=== PATIENT | female | born 1945 | race Caucasian/White ===

== ENCOUNTER → 2017-06-01 | Outpatient (CLI) | payer MEDICARE ==
--- NOTE | 2017-06-01 09:47 | NM ---
EXAMINATION TYPE: NM gastric emptying study DATE OF EXAM: 06/01/2017 COMPARISON: NONE HISTORY: Dysphasia Following administration of 2.0 mCi Tc 99m Sulfur Colloid with 1 cup of oatmeal projection images of the abdomen were obtained 5 minutes post ingestion. When possible, both anterior and posterior projec tion images were obtained to allow the calculation of the geometric mean activity. Clearance: 25 % Half-life: 36 min Gastroesophagel reflux: None IMPRESSION: Gastric emptying: Clearance of 25% and half-life of 36 minutes Gastroesophageal reflux: None Gastric emptying normal percentage values: 30 minutes: <70% of retention (> 30% emptying) suggests abnormally fast emptying. 60 minutes: <90% retention (>10% emptying) is normal; less than 30% retention (>70% emptying) suggest s abnormally rapid empying. 90 minutes: <65% retention (> 35% emptying) is normal. 120 minutes: <60% retention (> 40% emptying) is normal. 180 minutes: <30% retention (> 70% emptying) is normal. Gastric emptying T-1/2: Solid: The normal range is 60-105 minutes Liquid only: Normal range is 10-45 minutes. Liquid only-children: At 60 minutes, normal range is 44-58 % . Liquid only-infants: At 60 minutes, normal range is 32-64 %. Additional references: Gastric Emptying Scintigraphy [email or web address]
== END | disposition home or self-care (01) ==
LOC: RADNMMAIN 06:33
PROVIDERS: ATTEND Internal Medicine
DX: E11.9 Type 2 diabetes mellitus without complications (principal)
CPT/HCPCS: 78264; A9541

== ENCOUNTER → 2017-10-18 | Outpatient (CLI) | payer MEDICARE ==
--- NOTE | 2017-10-18 19:04 | MR ---
EXAMINATION TYPE: MR lumbar spine wo con DATE OF EXAM: 10/18/2017 COMPARISON: 03/10/2016 HISTORY: Low back pain with difficulty doing things TECHNIQUE: T1 and T2 axial and sagittal images of the lumbar spine are submitted. FINDINGS: There is no abnormal signal seen within the visualized spinal cord or paraspinal soft tissu es. At L1-2 there is moderate degenerative disc disease and circumferential disc bulging with facet arthr opathy. Mild bilateral foraminal encroachment. At L2-3 there is severe degenerative disc disease with broad-based central disc bulging and posterior spondylosis. There is moderate bilateral foraminal encroachment. There is mild central stenosis. At L3-4 there is severe degenerative disc disease with marked facet arthropathy. Moderate bilateral f oraminal encroachment. Borderline to mild central stenosis. At L4-5 there is grade 1 anterolisthesis with diffuse disc bulging. Moderate to severe canal stenosis and moderate to severe bilateral foraminal encroachment. At L5-S1 there is facet arthropathy with findings greater on the right. Neural foramina remain patent . No Canal stenosis or focal herniation. IMPRESSION: 1. Overall stable findings, persistent grade 1 anterolisthesis L4 on L5, this spondylolisthesis cause s advanced bilateral neural foraminal narrowing and suspected effacement of both L4 nerves. In additi on multilevel degenerative change most prominent L3-L4 level is redemonstrated with effacement of rig ht L3 nerve once again seen. Further details are noted as discussed above.
== END | disposition home or self-care (01) ==
LOC: RADMRIMAIN 16:22
PROVIDERS: ATTEND Physical Medicine & Rehabilitation
DX: M99.73 Connective tissue and disc stenosis of intervertebral foramina of lumbar region (principal); M43.16 Spondylolisthesis, lumbar region; M47.816 Spondylosis without myelopathy or radiculopathy, lumbar region
CPT/HCPCS: 72148

== ENCOUNTER → 2018-05-03 | Outpatient (CLI) | payer MEDICARE ==
--- NOTE | 2018-05-03 17:05 | US ---
EXAMINATION TYPE: US venous doppler duplex LE RT DATE OF EXAM: 05/03/2018 4:37 PM COMPARISON: US CLINICAL HISTORY: R22.41 SWELLING,MASS RT LOWER EXTR.. Prior PE. Post back surgery 3 months ago and c /o rt leg swelling since then. SIDE PERFORMED: Right TECHNIQUE: The lower extremity deep venous system is examined utilizing real time linear array sonog g[place] with graded compression, doppler sonography and color-flow sonography. VESSELS IMAGED: Common Femoral Vein Deep Femoral Vein Greater Saphenous Vein * Femoral Vein Popliteal Vein Small Saphenous Vein * Proximal Calf Veins (* superficial vessels) Right Leg: Negative for DVT IMPRESSION: 1. Right lower extremity ultrasound negative for deep venous thrombosis. 2. Fluid edema collections are evident within the subcutaneous tissues to the soft tissues.
== END | disposition home or self-care (01) ==
LOC: RADUSWWP 15:48
PROVIDERS: ATTEND Internal Medicine
DX: R60.0 Localized edema (principal)

== ENCOUNTER → 2019-03-21 | Outpatient (CLI) | payer MEDICARE ==
[2019-03-21 17:07] LABS: LDL Cholesterol,Calculated 141.4 mg/dL (0.0-131.0); VLDL Calculation 41.6 mg/dL (5.00-40.00)
== END | disposition home or self-care (01) ==
LOC: LABWHC1 11:26
PROVIDERS: ATTEND Internal Medicine Clinical Cardiac Electrophysiology
DX: E03.9 Hypothyroidism, unspecified (principal); E78.5 Hyperlipidemia, unspecified
CPT/HCPCS: 36415; 80061; 84443

== ENCOUNTER → 2019-03-25 | Outpatient (CLI) | payer MEDICARE ==
--- NOTE | 2019-03-25 14:51 | SFUN ---
SLEEP CENTER FOLLOW UP NOTE A 73-year-old female patient was diagnosed having obstructive sleep apnea many years ago and the patient saw me in followup here in the Sleep Center. Treatment has not been very much successful and the patient was having difficulty with increased hypersomnia and sleepiness. The patient was utilizing an older generation [employer] S9 series which was set at a pressure of 14 cm of water utilizing an Air Fit P 10 medium- size nose pillow. She was also complaining of neuropathy and leg pains and cramps and restlessness. She was on Zoloft for depression. She was taken Requip 0.5 mg 3 times a day and since her last evaluation, Lyrica was added 75 mg at bedtime. She underwent a polysomnogram. The patient was diagnosed again having sleep apnea, predominantly obstructive with a central component. The patient's overall apnea-hypopnea index was 35.8, was worse in the supine body position with an AHI of 49.3. She demonstrated severe nocturnal oxygen saturation were pulse ox was dropping as low as 60% and the patient had excessive sleep fragmentation. [id number], the patient did not have any significant periodic limb movements. She has history of depression on Zoloft. She has coronary artery disease with previous bypass surgeon. She has a history of CVA, chronic anxiety and hypertension. Based on all this, she was asked to come in to undergo a CPAP titration. She came in; however, she became anxious and she was unable to sleep and she is opting for an auto Pap or a home titration She has no other new complaints. Her symptoms are essentially unchanged compared to last evaluation. Her current Garland Score is at 17. Her body weight is 189, which is pretty much comparable to her body weight during her last evaluation. No other new complaints since her last evaluation. REVIEW OF SYSTEMS: A 14-point review of system was done. Positive findings are mentioned in history of present illness. Of significance is her stable weight, her increased leg cramps and restlessness which is well controlled with Requip and Lyrica. No suicidal ideations. No anhedonia, no headaches, no altered mentation. No cough or sputum production. No heartburn. No chest pain. No palpitations. No cardiac arrhythmias, no syncope. No sleepwalking or sleep talking. No sleep paralysis. No hallucinations. No cataplexy. No heartburn, nausea, vomiting, diarrhea, dysuria, or nocturia. PHYSICAL EXAMINATION: BP is 150/65, pulse 61, respirations 16, temperature 98.4 and saturation is 95% on room air. Weight is 189. General appearance is calm, comfortable. Head is atraumatic, normocephalic. NECK: Supple. Mallampati class IV. There is no goiter or neck mass. LUNGS: Clear to auscultation. HEART: Sounds regular rate and rhythm. Normal S1, S2. No S3, S4. No murmurs. ABDOMEN: Soft, nontender. No organomegaly. EXTREMITIES: No edema. No cyanosis or clubbing. NEUROLOGIC: The patient is alert and oriented x3. No focal neurological deficits. PSYCHIATRIC: Negative for anxiety. Positive for depression, currently on Zoloft. IMPRESSION: 1. Sleep apnea, severe, predominantly obstructive with a central component. Overall apnea-hypopnea index was 35, worse in the supine body position. The patient was unable to undergo an in-lab CPAP titration. 2. Nocturnal oxygen desaturation secondary to above. 3. Sleep fragmentation secondary to sleep apnea in general. Leg kicks and restlessness have not been a big component based on the screening polysomnogram. 4. History of restless legs syndrome, well treated with a combination of Lyrica and Requip. 5. Diminished sleep efficiency. 6. Depression. 7. Coronary artery disease. Previous bypass surgery. 8. Chronic anxiety. 9. History of cerebrovascular accident. 10.Hypertension. PLAN: Ideally, this patient with inlet titration knowing that she has a central component and cardiac disease and various other comorbidities. [id number], she is unable to complete an in-lab study. She opted for an auto Pap. I think that is reasonable. I am going to give her an auto Pap minimum of 10, maximum of 20 with an an Air Fit P10 nose pillow. The patient will see me back in 30 to 90 days for a followup regarding his compliance and clinical response. Meanwhile, she will continue the Zoloft for depression, Lyrica and Requip for restlessness and leg cramps. She understands that ideally, a titration would have been the best option for her. Alternatively titration and an an auto titration with followup may also improve her symptoms. Will continue to follow. MMODL / IJN: [id number] / [facility]
== END | disposition home or self-care (01) ==
LOC: SLEEP 13:25
PROVIDERS: ATTEND Internal Medicine Critical Care Medicine
DX: G47.33 Obstructive sleep apnea (adult) (pediatric) (principal); G47.31 Primary central sleep apnea; F32.9 Major depressive disorder, single episode, unspecified; I25.10 Atherosclerotic heart disease of native coronary artery without angina pectoris; F41.9 Anxiety disorder, unspecified; I10 Essential (primary) hypertension; Z86.73 Personal history of transient ischemic attack (TIA), and cerebral infarction without residual deficits; Z87.39 Personal history of other diseases of the musculoskeletal system and connective tissue; Z95.1 Presence of aortocoronary bypass graft; Z79.899 Other long term (current) drug therapy

== ENCOUNTER → 2019-08-08 | Outpatient (CLI) | payer MEDICARE ==
--- NOTE | 2019-08-08 15:21 | CT ---
EXAMINATION TYPE: CT brain wo con DATE OF EXAM: 08/08/2019 COMPARISON: MRI brain 05/13/2010 INDICATION: Headache after fall and head injury x1 week ago. DLP: 1131.6 mGycm, Automated exposure control for dose reduction was used. CONTRAST: None CT of the brain is performed utilizing 3 mm thick sections through the posterior fossa and 3 mm thick sections through the remaining calvarium. Study is performed within 24 hours of arrival to the hosp ital. No abnormal hyperdensity is present to suggest an acute intracranial hemorrhage. No mass lesion is evident. No acute infarcts are evident. There is diminished density along the external capsule left basal gang lion. Patchy white matter hypodensity is present. Ventricles and sulci are appropriate for the patient age. Paranasal sinuses and mastoid air cells within the [id number] are clear. Surgical skin vikram are along the upper scalp. IMPRESSIONS: 1. Periventricular white matter hypodensity, likely on the basis of chronic white matter ischemic c hanges. 2. Hypodensity within the external capsule left basal ganglion compatible some ischemic type change o f indeterminate age. This may be chronic. 3. No suspicious acute posttraumatic changes.
== END | disposition home or self-care (01) ==
LOC: RADCTMAIN 11:52
PROVIDERS: ATTEND Internal Medicine
DX: R90.89 Other abnormal findings on diagnostic imaging of central nervous system (principal)
CPT/HCPCS: 70450

== ENCOUNTER → 2019-10-09 | Outpatient (CLI) | payer MEDICARE ==
[2019-10-09 12:35] LABS: Anisocytosis Slight; HCT 37.2 % (34.0-46.0); HGB 11.1 gm/dL (11.4-16.0); Hypochromasia Marked; MCH 24.4 pg (25.0-35.0); MCHC 29.9 g/dL (31.0-37.0); MCV 81.6 fL (80.0-100.0); Platelet Count 164 k/uL (150-450); RBC 4.56 m/uL (3.80-5.40); RDW 17.2 % (11.5-15.5); WBC 5.4 k/uL (3.8-10.6)
[2019-10-09 18:36] LABS: African American GFR (CKD) 84.8 (60.0-200.0); Albumin 4.8 g/dL (3.80-4.90); Albumin/Globulin Ratio 2.18 (1.60-3.17); Anion Gap 10.8 mmol/L (4.00-12.00); BUN/Creat Ratio 23.75 Ratio (12.00-20.00); Calcium 9.3 mg/dL (8.7-10.3); Carbon Dioxide 27.2 mmol/L (21.6-31.8); Chol/HDL Ratio 3.39; Globulin 2.2 g/dL (1.6-3.3); LDL Cholesterol,Calculated 137.2 mg/dL (0.0-131.0); Magnesium 1.8 mg/dL (1.5-2.4); Non-African American GFR(CKD) 73.1 (60.0-200.0); Potassium 4.3 mmol/L (3.5-5.5); Total Bilirubin 0.4 mg/dL (0.3-1.2); VLDL Calculation 29.8 mg/dL (5.00-40.00)
== END | disposition home or self-care (01) ==
LOC: LABWHC1 11:31
PROVIDERS: ATTEND Nurse Practitioner Adult Health
DX: I10 Essential (primary) hypertension (principal); E78.5 Hyperlipidemia, unspecified
CPT/HCPCS: 36415; 80053; 80061; 83735; 85027

== ENCOUNTER → 2020-01-28 | Outpatient (CLI) | payer MEDICARE ==
[2020-01-28 10:34] LABS: Anisocytosis Slight; HCT 41.6 % (34.0-46.0); HGB 13.2 gm/dL (11.4-16.0); Hypochromasia Slight; MCH 28.7 pg (25.0-35.0); MCHC 31.7 g/dL (31.0-37.0); MCV 90.6 fL (80.0-100.0); Platelet Count 151 k/uL (150-450); RBC 4.59 m/uL (3.80-5.40)
[2020-01-28 10:58] LABS: African American GFR (CKD) >90 (>60 ml/min/1.73 sqM); Anion Gap 10 mmol/L; Blood Urea Nitrogen 22 mg/dL (7-17); Carbon Dioxide 27 mmol/L (22-30); Chloride 100 mmol/L (98-107); Non-African American GFR(CKD) 79 (>60 ml/min/1.73 sqM); Potassium 4.6 mmol/L (3.5-5.1); Sodium 137 mmol/L (137-145)
== END | disposition home or self-care (01) ==
LOC: LABPAT 09:54
PROVIDERS: ATTEND Internal Medicine Interventional Cardiology
DX: Z01.818 Encounter for other preprocedural examination (principal); I25.10 Atherosclerotic heart disease of native coronary artery without angina pectoris; U07.1 COVID-19
CPT/HCPCS: 80051; 82565; 84520; 85027; 36415; U0003

== ENCOUNTER 2020-02-20 09:02 | Day surgery (SDC) | payer MEDICARE ==
[2020-02-19 08:40] VITALS: BMI 38.0
[~2020-02-20 09:02] MED LIST: ALPRAZolam 0.25 MG TAB PO PRN; ALPRAZolam 0.5 MG TAB PO PRN; NITROGLYCERIN SL TABS 0.4 MG TAB SUBLINGUAL PRN; SODIUM CHLORIDE 0.9% 1,000 ML in EMPTY BAG 1 BAG IV ONE
[2020-02-20 09:54] LABS: Glucose,Whole Blood 108 mg/dL (75-99)
[2020-02-20 10:12] VITALS: BP 126/95; PULSE 62; RESP 16; TEMP 98.2
== END 2020-02-20 10:43 | disposition home or self-care (01) ==
LOC: CATHCVL 09:02
PROVIDERS: ATTEND Internal Medicine Interventional Cardiology
DX: I25.10 Atherosclerotic heart disease of native coronary artery without angina pectoris (principal); Z53.9 Procedure and treatment not carried out, unspecified reason

== ENCOUNTER 2020-03-12 06:40 | Day surgery (SDC) | payer MEDICARE ==
[2020-03-10 18:15] VITALS: BMI 37.8
[~2020-03-12 06:40] MED LIST changes: +ASPIRIN 325 MG TAB PO STA
[2020-03-12] MEDS ORDERED: ASPIRIN 81 MG PO ONE (07:00)
[2020-03-12 07:20] VITALS: RESP 16; TEMP 98
[2020-03-12 07:20] LABS: Anisocytosis Slight; Basophils % (A) 1 %; Eosinophils # (A) 0.2 k/uL (0-0.7); Eosinophils % (A) 4 %; HCT 42.5 % (34.0-46.0); HGB 13.7 gm/dL (11.4-16.0); Lymphocytes % (A) 16 %; MCH 29.7 pg (25.0-35.0); MCHC 32.3 g/dL (31.0-37.0); MCV 92.1 fL (80.0-100.0); Monocytes # (A) 0.5 k/uL (0-1.0); Monocytes % (A) 8 %; Neutrophils # (A) 4.1 k/uL (1.3-7.7); Neutrophils % (A) 69 %; Platelet Count 136 k/uL (150-450); RBC 4.62 m/uL (3.80-5.40); RDW 16.6 % (11.5-15.5)
[2020-03-12 07:29] LABS: African American GFR (CKD) >90 (>60 ml/min/1.73 sqM); Anion Gap 10 mmol/L; Blood Urea Nitrogen 28 mg/dL (7-17); Calcium 9.3 mg/dL (8.4-10.2); Carbon Dioxide 27 mmol/L (22-30); Chloride 105 mmol/L (98-107); Glucose 108 mg/dL (74-99); Non-African American GFR(CKD) 87 (>60 ml/min/1.73 sqM); Potassium 3.9 mmol/L (3.5-5.1); Sodium 142 mmol/L (137-145)
[2020-03-12] MEDS: MIDAZOLAM 2 MG/2 ML VIAL IVP ONE ×2 (07:39→07:56)
[2020-03-12] MEDS ORDERED: LIDOCAINE 1% INJ 10MG/ML (20 ML MDV) SQ ONE (07:43)
[2020-03-12] MEDS ORDERED: IOPAMIDOL-370 50ML BTL INJ ONE (08:09)
[2020-03-12] MEDS ORDERED: IOPAMIDOL-370 100ML BTL INJ ONE (08:12)
[2020-03-12] MEDS ORDERED: RX INFO: IV CONTRAST WAS GIVEN 1 EACH MISC MISCELLANE PRN (08:19)
[2020-03-12] MEDS ORDERED: SODIUM CHLORIDE 0.9% 1,000 ML IV SCH (08:30)
[2020-03-12 13:18] VITALS: BP 126/62; PULSE 57
--- NOTE | 2020-03-12 13:44 | CC ---
CARDIAC CATHETERIZATION REPORT DATE OF SERVICE: 03/12/2020 PERFORMING PHYSICIAN: Oz Allen MD. PROCEDURE PERFORMED: 1. Selective left and right coronary angiogram. 2. SPENCER to LAD angiogram. 3. SVG to diagonal angiogram. 4. Left heart catheterization. 5. An aortic root angiogram. INDICATION: This is a 74-year-old female patient who sees Dr. Jacinto in the office as an outpatient with a past medical history significant for diabetes, hypertension, dyslipidemia, and coronary artery disease. At [facility] in 2007, she underwent percutaneous artery percutaneous coronary intervention complicated by what seems to be dissection and the patient underwent an emergent open heart surgery and she received 2 bypasses. The details on these bypasses before the procedure today were unknown. Recently, she was experiencing intermittent episodes of chest discomfort and she underwent myocardial perfusion imaging stress test and that revealed reversible defect. Because of that, a heart catheterization was advised. APPROACH: Right common femoral artery. COMPLICATION: None. LEVEL OF SEDATION: Moderate with sedation length of 29 minutes. PROCEDURE DESCRIPTION: After obtaining an informed consent, the patient was brought to the cardiac mechanical shop laborer. The right common femoral artery was cannulated using micropuncture technique, and the micropuncture wire passed easily. Then I placed a 6-Palauan sheath 11 cm at the right groin. Selective left and right coronary angiogram performed using JL4.5 and JR4 catheters. SPENCER to LAD angiogram was performed using the JR4 catheter. SVG to diagonal angiogram was performed using also the JR4 catheter. The left heart catheterization was performed using 6-Palauan pigtail catheter. An aortic root angiogram was performed using also 6-Palauan pigtail catheter. The procedure was completed without any complication. Selective coronary angiogram. 1. The left main appeared to be long with mild disease only distally appeared to be in the range of 10% to 20%. Then the left main bifurcates into a dominant left circumflex and left anterior descending artery. 2. The left circumflex is a large caliber vessel and is a codominant vessel. The proximal circumflex has mild disease only. It gives rise into the first obtuse marginal branch which is a medium caliber vessel, about 2 mm in diameter, has ostial lesion and appeared to be in the range of 70%. The mid left circumflex appeared to be angiographically normal and gives rise into a small 2nd obtuse marginal branch which appeared to be angiographically normal. The circumflex distally became a PDA and that seems to be angiographically normal. 3. The left anterior descending artery. The very proximal LAD from the left main has a lesion that appeared to be in the range of 70% and this is by the bifurcation of the first diagonal branch which is a large caliber vessel with competitive flow in it. After that, the LAD is stented and the stent is patent, but there is also competitive flow in the LAD that comes from the SPENCER. 4. The right coronary artery is a large caliber vessel. It is a codominant vessel with mild disease only. Distally bifurcates into PDA and PLV branches. Both appeared to be angiographically normal. CORONARY BYPASS ANGIOGRAM: 1. The SVG to diagonal appeared to be patent. 2. The SPENCER to LAD appeared to be patent as well. HEMODYNAMICS: The LVEDP was 28 mmHg without significant gradient across aortic valve. AORTIC ROOT ANGIOGRAM: The aortic root angiogram was performed in the TAJIK projection and using a power injection. The aortic root appeared to be dilated right after the takeoff of the coronary arteries. CONCLUSION: 1. Severe disease involving the very proximal left anterior descending artery. The left internal mammary artery to left anterior descending is patent. The saphenous venous graft to diagonal is patent as well. 2. Severe disease involving a medium caliber 1st obtuse marginal branch, but that involving the ostium of the obtuse marginal. I would advise medical treatment for that. 3. Mild disease involving the right coronary artery. 4. Patent left internal mammary artery to left anterior descending as I described earlier. 5. Patent saphenous vein graft to diagonal as I described earlier. 6. Elevated left ventricular end-diastolic pressure. 7. Dilated aortic root. POSTPROCEDURE MANAGEMENT: 1. I would advise and maximized medical treatment and conservative medical approach at this point of time. 2. I would definitely obtain a CTA of the thoracic aorta to get a better measurement of the aortic root. 3. Start the patient on oral diuretics as an outpatient given her elevated LVEDP. 4. Follow up with the patient. ASHLYN / ARIAN: [id number] /
== END 2020-03-12 15:22 | disposition home or self-care (01) ==
LOC: CATHCVL 06:40
PROVIDERS: ATTEND Internal Medicine Interventional Cardiology
DX: I25.10 Atherosclerotic heart disease of native coronary artery without angina pectoris (principal); I77.819 Aortic ectasia, unspecified site; I10 Essential (primary) hypertension; I35.2 Nonrheumatic aortic (valve) stenosis with insufficiency; R94.39 Abnormal result of other cardiovascular function study; E11.51 Type 2 diabetes mellitus with diabetic peripheral angiopathy without gangrene; E78.5 Hyperlipidemia, unspecified; Z95.1 Presence of aortocoronary bypass graft; Z95.5 Presence of coronary angioplasty implant and graft; Z72.0 Tobacco use; G47.33 Obstructive sleep apnea (adult) (pediatric); Z99.89 Dependence on other enabling machines and devices; Z82.49 Family history of ischemic heart disease and other diseases of the circulatory system; Z79.02 Long term (current) use of antithrombotics/antiplatelets; Z79.82 Long term (current) use of aspirin; Z79.899 Other long term (current) drug therapy; Z88.6 Allergy status to analgesic agent; Z88.5 Allergy status to narcotic agent; Z88.8 Allergy status to other drugs, medicaments and biological substances
CPT/HCPCS: 93459; 93567; 80048; 85025; C1769 ×4; C1894 ×2; J2250; J2001; Q9967 ×2

== ENCOUNTER → 2021-05-18 | Outpatient (CLI) | payer MEDICARE, SELFPAY ==
--- NOTE | 2021-05-18 15:15 | MR ---
EXAMINATION TYPE: MR brain wo con DATE OF EXAM: 05/18/2021 COMPARISON: CT brain August 08, 2019 HISTORY: dizziness and giddiness TECHNIQUE: Multiplanar, multisequence imaging of the brain and brainstem is performed without IV cont rast. FINDINGS: Diffusion weighted images demonstrate no evidence of a recent infarct or other diffusion abnormality. There is mild to moderate ventricular and sulcal prominence. Scattered foci of T2 intensity is seen t hroughout the superficial, deep, and periventricular white matter. Approximately 40-50 scattered lesi ons. Old infarct left external capsule curvilinear in shape axial image 16 is redemonstrated. Midline structures redemonstrate normal morphology. The craniocervical junction appears within evan l limits. Normal vascular flow voids are present. The visualized sinuses are clear and the globes are intact. No suspicious opacification mastoid air cells bilaterally. IMPRESSION: [id number] diffuse cerebral and old left-sided infarct redemonstrated. Moderate chr onic small vessel ischemic change is appreciated better on MRI versus CT.
== END | disposition home or self-care (01) ==
LOC: RADMRIMAIN 14:12
PROVIDERS: ATTEND Family Medicine
DX: I63.9 Cerebral infarction, unspecified (principal); I67.82 Cerebral ischemia
CPT/HCPCS: 70551

== ENCOUNTER 2021-06-30 07:26 | Day surgery (SDC) | payer MEDICARE ==
[2021-06-28 11:17] VITALS: BMI 37.3
[2021-06-30] MEDS ORDERED: SODIUM CHLORIDE 0.9% 500 ML 500 ML IV ONE (07:57)
[2021-06-30 07:58] VITALS: TEMP 98
[2021-06-30 07:58] LABS: Glucose,Whole Blood 107 mg/dL (75-99)
[2021-06-30] MEDS ORDERED: fentaNYL (PF) 50 MCG/ML 2 ML AMP ONE (08:14)
[2021-06-30] MEDS: MIDAZOLAM 2 MG/2 ML VIAL IV ONE ×2 (08:56→08:59)
[2021-06-30] MEDS: BENZOCAINE SPRAY 1 CAN MUCOUS MEM ONE ×2 (08:56→08:59)
[2021-06-30] MEDS: fentaNYL (PF) 50 MCG/ML 2 ML AMP IV ONE ×2 (09:00→09:02)
[2021-06-30] MEDS ORDERED: MIDAZOLAM 2 MG/2 ML VIAL IV ONE (09:02)
[2021-06-30 09:18] VITALS: RESP 12
--- NOTE | 2021-06-30 09:39 | P.PCN ---
Date of Procedure: 06/30/21 Operative Findings: TRANSESOPHAGEAL ECHOCARDIOGRAM ACCOUNTANT PROPERTY: LIZZIE RENTERIA MD, RPVI INDICATION: This is a 76-year-old female patient who sees Dr. Jacinto regularly. She underwent an echocardiogram recently and that revealed evidence off aortic valve disease with aortic stenosis and aortic regurgitation. The transesophageal echocardiogram is for further clarification of the severity of the aortic stenosis and aortic regurgitation. SEDATION: Conscious sedation with a sedation length of 11 minutes COMPLICATION: None PROCEDURE DESCRIPTION: After obtaining an informed consent, the patient was brought to transesophageal echocardiogram room. Pulse oximetry and heart monitors were attached to the patient. The patient throat was sprayed using lidocaine. The patient was turned into left lateral position. After that a bite guard was placed. After an appropriate conscious sedation was initiated, the transesophageal echocardiogram was advanced through a bite guard into the mid esophagus. A 2-D echocardiogram images, color Doppler images, continuous wave images, pulse-wave images, of various cardiac structure were performed. After that the transesophageal echocardiogram probe was advanced into the stomach and fixed to obtain transgastric view was. The probe was brought into the mid esophagus. Inter-atrial septum was interrogated using 2D images, color Doppler images, and then contrast study. After that transesophageal echocardiogram was withdrawn out and upon withdrawing the descending thoracic aorta all the way up to the arch was evaluated. Please note that the patient was sedated with a total of 3 mg of Versed and 75 g of fentanyl on divided doses. FINDING: The left ventricular dimension and systolic function appeared to be within normal limits. There is mild concentric left ventricular hypertrophy identified. The right ventricle appeared to be of normal size and function. The left atrium and right atrium are mildly dilated. The left atrial appendage appears to be free from any thrombus. The interatrial septum appears to be intact without any evidence of shunt by color flow Doppler. Agitated saline was not performed. Aortic valve is trileaflet valve. The valve is sclerotic/calcified with evidence of moderate aortic stenosis with a peak gradient of 50-1 mean of 22 mmHg. The aortic valve area was 1.4 mm. There is moderate aortic regurgitation seen. The mitral valve appears to be also thickened and calcified was moderate mitral regurgitation. Moderate tricuspid regurgitation was identified. The ascending aorta appears to be dilated at 4 cm. CONCLUSION: 1. Normal left ventricular dimension and systolic function with evidence of mild left ventricular hypertrophy 2. Normal right ventricular dimension and systolic function 3. Moderate biatrial enlargement 4. Intact interatrial septum without any evidence of shunt 5. Intact left atrial appendage without any evidence of thrombus 6. Trileaflet aortic valve with evidence of aortic sclerosis and moderate stenosis by area as well as by gradient. The aortic valve area was 1.4 cm and the mean gradient was only 22 mmHg. There is also moderate aortic regurgitation 7. Thickened anterior and posterior mitral leaflets with evidence of moderate mitral regurgitation 8. Moderate tricuspid regurgitation 9. Dilated aorta at 4.0 cm 10. No evidence of pericardial effusion
[2021-06-30 10:49] VITALS: BP 158/68; PULSE 64
== END 2021-06-30 10:48 | disposition home or self-care (01) ==
LOC: CATHCVL 07:26
PROVIDERS: ATTEND Internal Medicine Interventional Cardiology
DX: I08.3 Combined rheumatic disorders of mitral, aortic and tricuspid valves (principal); E11.51 Type 2 diabetes mellitus with diabetic peripheral angiopathy without gangrene; I10 Essential (primary) hypertension; E78.5 Hyperlipidemia, unspecified; Z20.822 Contact with and (suspected) exposure to COVID-19; E66.9 Obesity, unspecified; Z68.37 Body mass index [BMI] 37.0-37.9, adult; G72.0 Drug-induced myopathy; T88.7XXA Unspecified adverse effect of drug or medicament, initial encounter; T50.915A Adverse effect of multiple unspecified drugs, medicaments and biological substances, initial encounter; R94.39 Abnormal result of other cardiovascular function study; Z82.49 Family history of ischemic heart disease and other diseases of the circulatory system; Z79.02 Long term (current) use of antithrombotics/antiplatelets; Z79.82 Long term (current) use of aspirin; Z72.0 Tobacco use; Z88.6 Allergy status to analgesic agent; Z88.5 Allergy status to narcotic agent; Z88.8 Allergy status to other drugs, medicaments and biological substances; Z79.899 Other long term (current) drug therapy
CPT/HCPCS: 93312; 93320; 93325; 87635; J2250; J3010